=== PATIENT | male | born 1970 | race Caucasian/White ===

== ENCOUNTER 2021-01-15 06:29 | Emergency (ER) | payer MEDICAID, OTHER ==
[~2021-01-15] VITALS: Ht 172.7 cm; Wt 113.4 kg
[2021-01-15 06:30] VITALS: BP 169/99
[2021-01-15] MEDS ORDERED: KETOROLAC TROMETH 60MG/2ML VIAL IM ONE (07:45)
== END 2021-01-15 08:44 | disposition home or self-care (01) ==
LOC: ER 06:29
DX: M54.16 Radiculopathy, lumbar region (principal)
CPT/HCPCS: 72100; 81002; 96372; 99283; J1885